=== PATIENT | male | born 1985 | race African-American/Black ===

== ENCOUNTER 2023-12-20 04:18 | Emergency (ER) | payer SELFPAY ==
[2023-12-20] MEDS ORDERED: Ketorolac Tromethamine 30 MG (1 mL) VIAL ONE (05:49)
== END 2023-12-20 06:08 | disposition home or self-care (01) ==
LOC: ERS 04:18
DX: S76.011A Strain of muscle, fascia and tendon of right hip, initial encounter (principal); F17.210 Nicotine dependence, cigarettes, uncomplicated; X50.0XXA Overexertion from strenuous movement or load, initial encounter
CPT/HCPCS: 96372; J1885